=== PATIENT | female | born 1940 | race Caucasian/White ===

== ENCOUNTER 2017-09-03 16:32 | Emergency (ER) | payer MEDICARE ==
--- OUTSIDE RECORDS SUMMARY | 2017-09-03 17:08 | XMS REPORT ---
:1940 External Reference #:[id number] Author Organization [facility] [employer] Address [address] [address] Phone [phone] Care Team Providers Name Role Phone Rojelio Ernst MD Primary Care Physician Unavailable Payers Type Date Identification Numbers Payment Provider Subscriber Medicare Primary Policy Number: [id number] Medicare Mona Nye PayID: [id number] [address] [place] [address] [facility] Part B Policy Number: [id number] [facility] Mona Nye PayID: [id number] [address] [place] [address] Problems Description No Information Family History Date Family Member(s) Problem(s) Comments General No Current Problems Social History Type Date Description Comments Smoking Patient is a former smoker quit 25 yrs ago General Hx Text [employer] travel to [place] last year Allergies, Adverse Reactions, Alerts Date Description Reaction Status Severity Comments 08/31/2017 Penicillin rash active 08/31/2017 Cefazolin rash active 08/31/2017 Nitrofurantoin fevers active Medications Medication Date Status Form Strength Qnty SIG Indications Ordering Provider Monurol 08/31 Active Packet 3gm 3unit 1 packet Z16.24 s dissolved D. in water [facility] [place], every 3 M.D. days Levothyroxine Active Tablets 112mcg Unknown Sodium /0000 Hydrochlorothiazide 00 Active Tablets 25mg Unknown /0000 Timolol Maleate Active Solution 0.5% Instill 1 Unknown /0000 Drop In The Left Eye Every Day Advil 00 Active Capsules 200mg 3 tabs Unknown /0000 every 6 hrs as needed Tylenol 00 Active Capsules 500mg 1 tablets Unknown /0000 every 6 hours as needed for pain Vital Signs Date Vital Result Comment 08/31/2017 Height 66 inches 5'6" Weight 143.00 lb Heart Rate 60 /min BP Systolic Sitting 142 mmHg BP Diastolic Sitting 70 mmHg Respiratory Rate 14 /min Body Temperature 97.0 F BMI (Body Mass Index) 23.1 kg/m2 Results Description No Information Procedures Description No Information Plan of Care Future Appointment(s):09/20/2017 9:10 am - Ventura Greenfield M.D. at [facility]60/11/2018 - Ventura Greenfield M.D.N30.01 Acute cystitis with hematuriaComments:straight cath specimen today to be sure the culture result does not represent contamination. Abx asbelow. US renal/ bladder for stone diseases if symptoms do not resolve or they return after stoppingantibiotics.B96.20 Unsp Escherichia coli as the cause of diseases classd elswhrFollow up:2-3 rtkzbX42.24 Resistance to multiple antibioticsNew Medication:Monurol 3 gm
--- NOTE | 2017-09-03 20:27 | RAD ---
INDICATION: Neck mass COMPARISON: None TECHNIQUE: Real time ultrasound images of the right neck were acquired with garica scale and Doppler color flow imaging. FINDINGS: Sonographic examination of the right neck reveals several morphologically normal lymph nodes the largest measuring 8 x 4 x 3 mm. No suspicious masses or fluid collections are visualized. IMPRESSION: Normal sonographic examination of the right neck.
--- NOTE | 2017-09-03 21:41 | ED ---
Dena Taylor Emily, scribed for Hamzah Estevez MD on 09/03/17 at 1922 . Complex/Multi-Sys Presentation - HPI Summary HPI Summary: This patient is a 76 year old F presenting to [facility] accompanied by with a chief complaint of R neck pain that began [employer]. The patient rates the pain 0/ 10 in severity. Symptoms aggravated by nothing. Symptoms alleviated by nothing. Patient reports headache, jelly rivera size lump on neck, and ear pain (resolved ). Patient denies fever and chills. - History Of Current Complaint Chief Complaint: EDNeckComplaint Hx Obtained From: Patient Onset/Duration: Sudden Onset, Lasting Hours, Still Present Timing: Constant Severity Currently: Mild Severity Initially: Mild Aggravating Factor(s): Nothing Alleviating Factor(s): Nothing Associated Signs And Symptoms: Positive: Other - Positive headache, jelly rivera size lump on neck, and ear pain (resolved). Negative fever and chills - Allergies/Home Medications Allergies/Adverse Reactions: Allergies Allergy/AdvReac Type Severity Reaction Status Date / Time MS Cefazolin [From Ancef] Allergy Severe Rash Verified 04/28/13 20:18 MS Nitrofurantoin Allergy Severe Fever Verified 04/28/13 20:18 [From Macrodantin] MS Penicillins [Penicillins] Allergy Severe Rash Verified 04/28/13 20:17 PMH/Surg Hx/FS Hx/Imm Hx Previously Healthy: Yes Opthamlomology History: Denies: Hx Legally Blind EENT History: Denies: Hx Deafness - Surgical History Surgery Procedure, Year, and Place: THYROID REMOVED Infectious Disease History: Yes Infectious Disease History: Denies: Traveled Outside the [place] in Last 30 Days - Family History Known Family History: Positive: Unknown - Social History Occupation: Retired Lives: With Family Alcohol Use: None Substance Use Type: Reports: None Smoking Status (MU): Never Smoked Tobacco Review of Systems Negative: Fever, Chills Positive: Ear Ache Positive: Other - Positive R sided neck pain Positive: Other - Positive lump on neck All Other Systems Reviewed And Are Negative: Yes Physical Exam - Summary Physical Exam Summary: Appearance: Well-appearing, Well-nourished Skin: Warm Eyes: Normal ENT: R TM more opaque than the left. Neck: Supple, Mild R anterior lymph node swelling, size about 1 cm. Mild R postauricular lymph node tenderness. Respiratory: Clear to auscultation Cardiovascular: Regular rate, regular rhythm. Normal S1, S2. Abdomen: Soft, nontender Musculoskeletal: Normal, Strength/ROM Intact Neurological: Normal, A&Ox3 Psychiatric: Normal General: No acute distress Triage Information Reviewed: Yes Vital Signs On Initial Exam: Initial Vitals Temp Pulse Resp BP Pulse Ox 97.1 F 65 16 172/100 97 09/03/17 16:45 09/03/17 16:45 09/03/17 16:45 09/03/17 16:45 09/03/17 16:45 Vital Signs Reviewed: Yes Diagnostics - Vital Signs Vital Signs Temp Pulse Resp BP Pulse Ox 09/03/17 16:45 97.1 F 65 16 172/100 97 - Laboratory Lab Statement: Any lab studies that have been ordered have been reviewed, and results considered in the medical decision making process. - Additional Comments Diagnostic Additional Comments: Neck soft tissue US reveals, per radiologist, normal sonographic examination of the right neck. ED physician has reviewed this radiology report. Complex Multi-Symp Course/Dx Course Of Treatment: US sofe tissue of neck neg for LN enlargment or mass - Diagnoses Provider Diagnoses: Swelling, lymph nodes Discharge - Sign-Out/Discharge Documenting (check all that apply): Discharge - Discharge Plan Condition: Stable Disposition: HOME Patient Education Materials: Adenitis (ED) Referrals: Rojelio Ernst MD [Primary Care Provider] - Additional Instructions: follow up with your PCP within 1 week - Billing Disposition and Condition Condition: STABLE Disposition: HOME The documentation as recorded by the Dena ramesh Emily accurately reflects the service I personally performed and the decisions made by , Hamzah Estevez MD.
[2017-09-03 22:10] VITALS: BP 144/83
== END 2017-09-03 22:10 | disposition home or self-care (01) ==
LOC: ED 16:32
DX: R59.9 Enlarged lymph nodes, unspecified (principal); Z88.0 Allergy status to penicillin
CPT/HCPCS: 76536; 99282

== ENCOUNTER 2017-12-07 11:15 | Day surgery (SDC) | payer MEDICARE ==
[~2017-12-07 11:15] MED LIST: Buffered Lidocaine 0.9% SYRIN* 5 ML/SYR SYRINGE INTRADERM ONE; Dexamethasone IV* 4 MG/ML 1 ML (4 MG) IV SLOW PU ONE; Famotidine IV* 10 MG/ML 2 ML (20 mg) IV ONE
[2017-12-07] MEDS ORDERED: Famotidine IV* 10 MG/ML 2 ML (20 mg) ONE (11:54)
[2017-12-07] MEDS ORDERED: Dexamethasone IV* 4 MG/ML 1 ML (4 MG) ONE (11:54)
[2017-12-07] MEDS ORDERED: Lidocaine 2% EPI 1:200000 MPF*10-20 ML VIAL ONE (13:42)
[2017-12-07] MEDS ORDERED: Oxymetazoline 0.05% NASAL SPR* 15 ML BTL ONE (13:42)
[2017-12-07] MEDS ORDERED: Gelatin ADSORBABLE (OPHTH)* OPHTH.FILM ONE ×2 (13:44→14:31)
[2017-12-07] MEDS ORDERED: Triamcinolone Acetonide* 40 MG/ML 1 ML VIAL ONE (13:44)
[2017-12-07] MEDS ORDERED: Gelfoam 12-7 ADSORBABL SPONGE* 1 EA SPONGE ONE ×2 (13:44→14:31)
[2017-12-07] MEDS ORDERED: Naloxone* 0.4 MG/ML 1 ML VIAL IV PRN (13:52)
[2017-12-07] MEDS ORDERED: HYDROcodone/ACETAMIN 5-325 MG* 1 TAB PO PRN (13:52)
[2017-12-07] MEDS ORDERED: oxyCODONE/Acetamin 5/325 MG* TAB PO PRN (13:52)
[2017-12-07] MEDS ORDERED: Ketorolac INJ* 30 MG/ML 1 ML VIAL IV PRN (13:52)
[2017-12-07] MEDS ORDERED: Acetaminophen TAB* 325 MG PO PRN (13:52)
[2017-12-07] MEDS ORDERED: PROCHLORPERAZINE INJ 5 MG/ML 2 ML VIAL IV PRN (13:52)
[2017-12-07] MEDS ORDERED: fentaNYL* 50 MCG/ML 2 ML VIAL (100 MCG VIAL) IV PRN (13:52)
[2017-12-07] MEDS ORDERED: Lidocaine 2% PF * 5 ML VIAL ONE (13:57)
[2017-12-07] MEDS ORDERED: Propofol* 10 MG/ML 20 ML BTL IV PUSH ONE (13:57)
[2017-12-07] MEDS ORDERED: fentaNYL* 50 MCG/ML 2 ML VIAL (100 MCG VIAL) ONE (13:58)
[2017-12-07] MEDS ORDERED: Ondansetron INJ* 2 MG/ML VIAL ONE (14:21)
[2017-12-07] MEDS ORDERED: Acetaminophen TAB* 325 MG ONE (14:48)
[2017-12-07] MEDS ORDERED: Ketorolac INJ* 30 MG/ML 1 ML VIAL ONE (14:49)
[2017-12-07 15:22] VITALS: BP 155/93
--- NOTE | 2017-12-08 01:54 | OP ---
DATE OF OPERATION: 12/07/17 - [facility] DATE OF : 40 SURGEON: Richmond Corona MD. PRE-OP DIAGNOSIS: Chronic maxillary sinusitis with oroantral fistula. POST-OP DIAGNOSIS: Chronic maxillary sinusitis with oroantral fistula. OPERATIVE PROCEDURE: Maxillary antrostomy, removal of tissue. BRIEF HISTORY: This 77-year-old female with oroantral fistula, persistent sinusitis on CT scan, and persistent purulent rhinorrhea, elected for surgical management. DESCRIPTION OF PROCEDURE: The patient was taken to the operating room, general anesthetic given, the patient was intubated with LMA. Nose was decongested with Afrin-placed pledgets. Subsequently, 2% lidocaine with epinephrine was carried out in the region of the left septum and on the left uncinate middle turbinate region. Small septal resection was carried out to allow adequate visualization and access to instrumentation for the maxillary antrostomy. Once the mucosa was replaced, middle turbinate was medialized. Subsequently, the uncinate process was peeled out anterior and resected out with a microshaver. The antral opening was edematous and closed. Small probe was inserted and copious amounts of purulent material was suctioned out. This was sent for culture. Subsequently, a microshaver was used to completely resect the antral opening and widen it posterior towards the posterior fontanelle. Some hyperplastic mucosa from the middle meatal area and into the maxillary antrum was removed. Once adequate resection and copious cleaning was carried out of the sinus, the area was packed with Gelfilm and Gelfoam as a spacer, which was soaked with Kenalog. The patient was then awakened and sent to recovery room in stable condition. Instrument and sponge counts correct. Blood loss minimal. [id number]/[facility] #: [id number] MTDD
== END 2017-12-07 15:46 | disposition home or self-care (01) ==
LOC: OR 11:15
PROVIDERS: ATTEND Otolaryngology
DX: J32.0 Chronic maxillary sinusitis (principal); K04.6 Periapical abscess with sinus; Z88.0 Allergy status to penicillin; Z88.1 Allergy status to other antibiotic agents; I10 Essential (primary) hypertension; E03.9 Hypothyroidism, unspecified; G43.909 Migraine, unspecified, not intractable, without status migrainosus
CPT/HCPCS: 87070; 87077; 87186; 87205; A9270-GY; J1100; J1885; J2405; J2704; J3010; J3301

== ENCOUNTER 2018-03-29 06:24 | Day surgery (SDC) | payer MEDICARE ==
[~2018-03-29 06:24] MED LIST changes: +Acetaminophen TAB* 325 MG PO PRN; -Dexamethasone IV* 4 MG/ML 1 ML (4 MG) IV SLOW PU ONE; -Famotidine IV* 10 MG/ML 2 ML (20 mg) IV ONE
[2018-03-29] MEDS ORDERED: fentaNYL* 50 MCG/ML 2 ML VIAL (100 MCG VIAL) ONE (07:08)
[2018-03-29] MEDS ORDERED: Midazolam* 1 MG/ML 2 ML VIAL (2 MG) ONE (07:08)
[2018-03-29 08:24] VITALS: BP 142/73
[2018-03-29] MEDS ORDERED: Ketorolac 0.5% OPHTH (NF) 0.5 % 5 ML BTL ONE (10:46)
[2018-03-29] MEDS ORDERED: Neomycin/Polymy/Dex OPTH.SUSP* MAXITROL 0.1% 5 ML ONE (10:46)
[2018-03-29] MEDS ORDERED: Lidocaine 2% EPI 1:200000 MPF*10-20 ML VIAL ONE (10:46)
[2018-03-29] MEDS ORDERED: Lidocaine 1%* 5 ML VIAL ONE (10:46)
[2018-03-29] MEDS ORDERED: Phenylephrine 2.5% OPTH.SOL* 2 ML BTL ONE (10:46)
[2018-03-29] MEDS ORDERED: Cyclopentolate 1% OPTH.SOL* 2 ML BTL ONE (10:46)
[2018-03-29] MEDS ORDERED: Proparacaine 0.5% OPHTH.SOL* 15 ML BTL ONE (10:46)
[2018-03-29] MEDS ORDERED: Povidone Iodine 5% OPTH* 30 ML BTL ONE (10:46)
[2018-03-29] MEDS ORDERED: acetaZOLAMIDE TAB* 250 MG ONE (10:46)
--- NOTE | 2018-03-29 11:22 | OP ---
DATE OF OPERATION: 03/29/2018. DATE OF : 1940. SURGEON: Frank Davis M.D. 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 OPERATIVE PROCEDURE: Extracapsular cataract extraction with intraocular lens implant and iStent left eye. PROCEDURE: The patient was brought to the operating room after being given 1/2% Alcaine with epineph rine drops in the preoperative area. The eye was prepped and draped in the usual sterile fashion. S terile drape and eyelid speculum were placed. Again, topical 1/2% Alcaine with epinephrine was given . A paracentesis incision was made at the 3 o'clock position with the No.75 blade. Clear cornea inc ision 2.2 x 2.2-mm was created at the 6 o'clock position starting at the anterior limbus using the 2. 2-mm keratome. The anterior chamber was irrigated with 0.4 mL of 1% non-preservative intracameral li docaine and filled with DisCoVisc. A capsulorrhexis was completed using the cystotome and the Utrata forceps. Hydrodissection was performed with balanced salt solution. The lens nucleus was removed wi th the Phacoemulsification handpiece without incident. Cortex was removed with the irrigation-aspira tion handpiece. The capsular bag was re-inflated using DisCoVisc and an [id number] implant was insert ed with the shooter, oriented to the 54 degree meridian. Horizontal reference shelton were made with t he patient in the seated position in the preoperative area. This was followed by an iStent [id number] i nserted into the trabecular meshwork at 9 o'clock position. The irrigation-aspiration handpiece was used to remove all residual DisCoVisc. The eye was refilled with balanced salt solution and the woun d checked and found to be watertight. Topical Maxitrol drops were given. [id number]/[facility] #: [id number]
== END 2018-03-29 08:28 | disposition home or self-care (01) ==
LOC: OREAST 06:24
PROVIDERS: ATTEND Specialist
DX: H25.12 Age-related nuclear cataract, left eye (principal); H40.1121 Primary open-angle glaucoma, left eye, mild stage; H40.051 Ocular hypertension, right eye; E05.00 Thyrotoxicosis with diffuse goiter without thyrotoxic crisis or storm; I10 Essential (primary) hypertension; Z87.891 Personal history of nicotine dependence
CPT/HCPCS: A9270-GY; C1783; J2250; J3010; V2787